=== PATIENT | female | born 1950 | race Caucasian/White ===

== ENCOUNTER 2019-12-12 11:59 | Inpatient (IN) | payer OTHER ==
[2019-12-12] VITALS (7 sets, daily range): BP systolic 102–135; BP diastolic 40–57
[~2019-12-12] VITALS: Ht 154.9 cm; Wt 81.7 kg
[2019-12-12 13:18] LABS: BASO % 0.2 % (0.0-1.0); HEMATOCRIT 32.1 % (37.0-47.0); LYMPH # 0.9 10*3/uL (1.3-4.4); MEAN CELL VOLUME 92.5 fl (81.0-99.0); MEAN CORPUSCULAR HGB 29.7 pg (27.0-31.0); MEAN CORPUSCULAR HGB CONC 32.1 g/dl (33.0-37.0); MEAN PLATELET VOLUME 9.3 fl (9.6-12.3); MONO # 0.3 10*3/uL (0.1-1.0); MONO % 6.7 % (3.0-9.0); NEUT # 3.3 10*3/uL (2.3-7.9); NEUT % 71.8 % (47.0-73.0); PLATELET COUNT AUTOMATED 139 10*3/uL (130-400); RED BLOOD COUNT 3.47 10*6/uL (4.10-5.10); RED CELL DISTRI WIDTH 13.9 % (0-14.5); WHITE BLOOD COUNT 4.6 10*3/uL (4.8-10.8)
[2019-12-12 13:33] LABS: ACT PARTIAL THROMBO TIME 36.5 SECONDS (20.0-32.1)
[2019-12-12 13:35] LABS: ALBUMIN 2.8 gm/dl (3.1-4.5); ALKALINE PHOSPHATASE 86 U/L (45-117); BUN 31 mg/dl (7-24); CHLORIDE 110 mmol/L (98-107); CREATININE 1.53 mg/dL (0.55-1.02); LIPASE 149 U/L (73-393); POTASSIUM 4.3 mmol/L (3.5-5.1); SGOT/AST 32 IU/L (3-35); SGPT/ALT 29 U/L (12-78); SODIUM 139 mmol/L (136-145); TOTAL PROTEIN 6.5 gm/dL (6.4-8.2)
[2019-12-12 13:38] LABS: TROPONIN I < 0.015 ng/ml (<0.045)
[2019-12-12 14:38] LABS: ARTERIAL BLOOD GAS PH 7.312 (7.35-7.45)
[2019-12-12 14:42] LABS: ABG BASE EXCESS -5.2 mmol/L (-2.0-2.0)
[2019-12-12 17:18] LABS: BILIRUBIN NEGATIVE (NEGATIVE); BLOOD NEGATIVE (NEGATIVE); CLARITY CLOUDY (CLEAR); COLOR YELLOW (YELLOW); GLUCOSE NEGATIVE (NEGATIVE); KETONE NEGATIVE (NEGATIVE); SPECIFIC GRAVITY 1.015 (1.005-1.030); UROBILINOGEN 0.2 E.U./dl (0.2-1.0)
[2019-12-12 17:19] LABS: LEUKO ESTERASE 2+ (NEGATIVE); NITRITE POSITIVE (NEGATIVE)
[2019-12-12 17:22] LABS: WBC TNTC wbc/hpf (0-5)
[2019-12-12 17:23] LABS: BACTERIA 3+
[2019-12-12] MEDS ORDERED: GLUCOPHAGE1000 MG PO (17:44)
[2019-12-12] MEDS ORDERED: K-TAB20 MEQ PO (17:45)
[2019-12-12] MEDS ORDERED: NEURONTIN600 MG PO (17:45)
[2019-12-12] MEDS ORDERED: LOPRESSOR25 MG PO (17:46)
[2019-12-12] MEDS ORDERED: LEVOTHYROXINE100 MC1 PO (17:47)
[2019-12-12] MEDS ORDERED: LASIX40 MG PO (17:47)
[2019-12-12] MEDS ORDERED: ALLOPURINOL300 MG PO (17:48)
[2019-12-12] MEDS ORDERED: MAGNESIUM400 M1 PO (17:48)
[2019-12-12] MEDS ORDERED: LIPITOR20 MG PO (17:48)
[2019-12-12] MEDS ORDERED: OPSUMIT PO (17:49)
[2019-12-12] MEDS ORDERED: OMEPRAZOLE40 MG PO (17:49)
[2019-12-12] MEDS ORDERED: ORENITRAM PO (17:50)
[2019-12-12] MEDS ORDERED: SILDENAFIL20 M1 PO (17:50)
[2019-12-12] MEDS ORDERED: GLIPIZIDE5 MG PO (17:50)
[2019-12-12] MEDS ORDERED: BUSPIRONE HCL10 MG PO (17:51)
[2019-12-12] MEDS ORDERED: PROBIOTIC1 EAC2 PO (17:52)
[2019-12-12] MEDS ORDERED: OSTEO BI-FLEX1 EACH PO (17:52)
[2019-12-12] MEDS ORDERED: VITAMIN E400 UNI2 PO (17:53)
[2019-12-12] MEDS ORDERED: FISH OIL 1,0001 EAC1 PO (17:53)
[2019-12-12] MEDS ORDERED: B COMPLEX1 EACH PO (17:54)
[2019-12-12] MEDS ORDERED: VITAMIN D310 MC3 PO (17:54)
[2019-12-12] MEDS ORDERED: CENTRUM SILVER1 EAC1 PO (17:55)
[2019-12-13] VITALS: BP 121/51
[2019-12-13 07:10] LABS: HEMATOCRIT 31.9 % (37.0-47.0); MEAN CELL VOLUME 94.1 fl (81.0-99.0); MEAN CORPUSCULAR HGB 29.8 pg (27.0-31.0); MEAN CORPUSCULAR HGB CONC 31.7 g/dl (33.0-37.0); MEAN PLATELET VOLUME 9.5 fl (9.6-12.3); PLATELET COUNT AUTOMATED 152 10*3/uL (130-400); RED BLOOD COUNT 3.39 10*6/uL (4.10-5.10); RED CELL DISTRI WIDTH 13.8 % (0-14.5); WHITE BLOOD COUNT 4.2 10*3/uL (4.8-10.8)
[2019-12-13 07:27] LABS: POTASSIUM 5.1 mmol/L (3.5-5.1)
[2019-12-13 07:38] LABS: ALBUMIN 2.6 gm/dl (3.1-4.5); CREATININE 1.48 mg/dL (0.55-1.02); FREE T4 1.47 ng/dl (0.76-1.46); THYROID STIM HORMONE (HS) 0.108 uIU/ml (0.358-4.75); TOTAL PROTEIN 6.8 gm/dL (6.4-8.2)
[2019-12-13 08:00] VITALS: BP 106/45
[2019-12-13 08:09] LABS: BURR CELLS FEW; OVALOCYTES FEW; PLATELET SUFFICIENCY NORMAL (NORMAL); TOTAL CELLS COUNTED 100 #CELLS
[2019-12-13 08:30] LABS: VITAMIN D, 25-HYDROXY 50.7 ng/mL (30-100)
[2019-12-13 11:59] LABS: ABG BASE EXCESS -4.4 mmol/L (-2.0-2.0); ARTERIAL BLOOD GAS PH 7.326 (7.35-7.45)
[2019-12-13 12:00] VITALS: BP 113/49
[2019-12-13 16:00] VITALS: BP 131/53
[2019-12-13 20:00] VITALS: BP 139/54
[2019-12-13 23:26] LABS: ABG BASE EXCESS -4.1 mmol/L (-2.0-2.0); ARTERIAL BLOOD GAS PH 7.336 (7.35-7.45)
[2019-12-14] VITALS: BP 130/51
== END 2019-12-14 00:30 | disposition short-term general hospital (02) | DRG 177 ==
LOC: ED 11:59 → EDHOLD 13:53 → 4E 13:53
PROVIDERS: Internal Medicine; Internal Medicine Critical Care Medicine; Nurse Practitioner Family; ADMIT Emergency Medicine
PROC: 5A09357 Assistance with Respiratory Ventilation, Less than 24 Consecutive Hours, Continuous Positive Airway Pressure (ICD-10-PCS; principal; 2019-12-13)
DX: U07.1 COVID-19 (principal); J96.21 Acute and chronic respiratory failure with hypoxia; J12.9 Viral pneumonia, unspecified; N17.0 Acute kidney failure with tubular necrosis; E44.0 Moderate protein-calorie malnutrition; I50.32 Chronic diastolic (congestive) heart failure; N39.0 Urinary tract infection, site not specified; D68.59 Other primary thrombophilia; E87.2 Acidosis; D72.819 Decreased white blood cell count, unspecified; D64.9 Anemia, unspecified; K21.9 Gastro-esophageal reflux disease without esophagitis; I27.20 Pulmonary hypertension, unspecified; M1A.9XX0 Chronic gout, unspecified, without tophus (tophi); E78.5 Hyperlipidemia, unspecified; E66.9 Obesity, unspecified; E87.8 Other disorders of electrolyte and fluid balance, not elsewhere classified; B96.89 Other specified bacterial agents as the cause of diseases classified elsewhere; R79.82 Elevated C-reactive protein (CRP); I11.0 Hypertensive heart disease with heart failure; Z96.611 Presence of right artificial shoulder joint; E03.9 Hypothyroidism, unspecified; E11.65 Type 2 diabetes mellitus with hyperglycemia; R79.89 Other specified abnormal findings of blood chemistry; Z79.4 Long term (current) use of insulin; Z99.81 Dependence on supplemental oxygen; Z88.1 Allergy status to other antibiotic agents; Z88.8 Allergy status to other drugs, medicaments and biological substances; Z90.49 Acquired absence of other specified parts of digestive tract; Z82.49 Family history of ischemic heart disease and other diseases of the circulatory system; Z68.31 Body mass index [BMI] 31.0-31.9, adult